=== PATIENT | female | born 2000 | race Caucasian/White ===

== ENCOUNTER 2024-08-22 11:03 | Emergency (ER) | payer BC, SELFPAY ==
[2024-08-22 11:05] VITALS: BP 118/72
--- NOTE | 2024-08-22 12:07 | ED.GENMED ---
History of Present Illness
General
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
Source: patient
Exam Limitations: none
Time Seen by Provider: 08/22/24 11:23
Nursing documentation reviewed up to this point in time: agreed with
History of Present Illness
History of Present Illness:
Patient is a 24-year-old female with past medical history ovarian cyst, breast augmentation SVT presents to the ER for evaluation of right lower quadrant pain. She reports last week she noticed some intermittent right lower quadrant pain and pain
in the right back. On Monday , 5 days ago she had intense pressure which lasted for 20 minutes. She reports she was bent over nauseous and even dry heaving. This felt similar to her ruptured ovarian cyst. She reports on Monday she had sexual
intercourse and pain started to increase again. She was going out of the country in 2 days and came here to the ER just to make sure that this was just a ruptured cyst.
She denies any fever or chills. She has current IUD in place when her last menstrual period therefore was 1 year ago. She denies any history of STD. She denies any vaginal discharge. She denies any abnormal bleeding. No prior history of
pregnancies.
Review of Systems
Review of Systems
Allergies reviewed?: Yes
All Other Systems: ROS reviewed and negative except as documented in HPI and ROS
Phy Exam
General Physical Exam
General Presentation: no apparent distress
General age: appears stated age
General Skin: warm and dry
General Habitus: normal
General Mental: alert
General Hydration: appears well hydrated
Gastrointestinal Exam
Gastrointestinal Exam: non tender and soft
Neurological Exam
Neurological Exam: alert and oriented x3
Musculoskeletal Exam
Musculoskeletal Exam: full ROM
Skin Exam
Skin Exam: normal color and warm/dry
Psychiatric Exam
Psychiatric Exam: normal mood/affect
Course
Orders/Labs/Results
Orders:
Orders
08/22/24 12:05
Test Result ONCE
US Pelvis W Transvag Combined Urgent
Reason For Exam: rlq pain hx of ovarian cyst
08/22/24 12:06
0.9% Sodium Chloride 1000 ml [Nss] 1,000 ml IV BOLUS
08/22/24 12:08
Complete Blood Count/With Diff Urgent
Comprehensive Metabolic Panel Urgent
HCG, Serum Qualitative Screen Urgent
Urinalysis Reflex To Culture Urgent
Date Specimen was Collected: 08/22/24
Time Specimen was Collected: :25
Abnormal Lab Results
08/22/24
12:08
Monocytes % 9.6 H %
(1.7-9.3)
Eosinophils % 9.3 H %
(0-6)
Chloride 108 H mmol/L
(98-107)
08/22/24 12:08
08/22/24 12:08
Vital Signs
Initial and Last Documented VS:
Initial Vital Signs
Temp Pulse Resp BP Pulse Ox
98.5 F 105 20 118/72 100
08/22/24 11:05 08/22/24 11:05 08/22/24 11:05 08/22/24 11:05 08/22/24 11:05
Last Documented Vital Signs
Temp Pulse Resp BP Pulse Ox
98.5 F 105 20 116/63 100
08/22/24 11:05 08/22/24 11:05 08/22/24 11:05 08/22/24 12:16 08/22/24 12:17
MDM/Problems Addressed
MDM/Problems Addressed:
As documented patient is a 24-year-old female with history of ovarian cyst presents for pain in the right lower quadrant similar to her ovarian cyst in the past. She is going to [facility] in 2 days which is what prompted her to come to the ER and
she is currently visiting from [place]. Ultrasound does confirm a complex right ovarian cyst likely hemorrhagic there appears to be complex fluid in the cul-de-sac and right adnexa suggesting hemorrhagic components. She however is very
well-appearing in no acute distress stable vitals and stable labs including stable hemoglobin. No bleeding. No prior history STD fever chills or . neg hcg. She has an IUD in place. Case reviewed with gynecology on-call Dr. Nance who
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 I did instruct patient to call signal circuit designer today to make an appointment for when she gets back as soon as possible. She is well-appearing stable for
discharge home.
*Radiology
Radiology exam reviewed: radiology read reviewed
*Pulse Oximetry
SaO2: 100
Oxygen Mode of Delivery: Room air
Patient hypoxic: no
*Critical Care Note
Total Time (30-74mins, 75-104mins- exclusive of procedures): Not Applicable
Patient Management
Discussion with other providers: Recreation Program Specialist (CERTIFIED OPTICIAN DR Nance )
ED Attending Note
-
Portions of this chart may have been created with voice recognition software.� Occasional wrong word or��sound alike� substitutions may have occurred due to the inherent limitations of voice recognition software.
Discharge Plan
Departure
Patient Disposition: Home (Routine Discharge)
Date of Disposition: 08/22/24
Time of Disposition: 15:32
Patient with high blood pressure during this ER visit?: No
Condition: Fair
Covid-19: Not Applicable
Discharge Problem:
Hemorrhagic ovarian cyst
Instructions: Ovarian cyst - ED discharge instructions
Referrals:
NONE,* [Family Provider, Internal Medicine]
Activity Restrictions/Additional Instructions:
As discussed no sexual activity until you are seen by your signal circuit designer. Please call to make an appointment with your signal circuit designer as soon as possible.
Return if any worsening of symptoms
You may take ibuprofen or Tylenol as needed.
Interventions
Interventions:
*Risk Screen - Suicide Last Done: 08/22/24 11:05
*General Assessment Last Done: 08/22/24 12:09
*Neglect/Abuse Screening Last Done: 08/22/24 11:05
*ED- Fall Risk Assessment Last Done: 08/22/24 11:26
*ED COVID-19 Vaccine History Last Done: 08/22/24 11:26
ED-Female Genitourinary Assessment Last Done: 08/22/24 11:27
Discharge Date and Time
Print Language: SYRIAC
[2024-08-22 12:09] VITALS: BMI 22.7
[2024-08-22 12:16] VITALS: BP 116/63
[2024-08-22] MEDS: NSS 1000 IV (12:17)
[2024-08-22 12:32] LABS: Hematocrit 39.0 % (37.0-47.0); Hemoglobin 13.2 g/dL (12.0-16.0); Mean Corp Hgb Conc. 33.8 g/dL (33.0-37.0); Mean Corpuscular Volume 89.0 fL (81.0-99.0); Nucleated Red Blood Cells % 0 %; Platelet Count 294 10^3/uL (130-400); Red Cell Dist. Width 12.6 % (11.5-14.5)
[2024-08-22 12:37] LABS: Urine Character Clear (Clear)
[2024-08-22 12:38] LABS: HCG, Serum Qualitative Screen Negative
[2024-08-22 13:11] LABS: ALT (SGPT) 17 U/L (0-35); AST (SGOT) 19 U/L (14-36); Albumin 4.5 g/dl (3.5-5.0); Alkaline Phosphatase 54 U/L (38-126); Blood Urea Nitrogen 10 mg/dl (7-17); Calcium 9.2 mg/dl (8.4-10.2); Carbon Dioxide 25 mmol/L (22-30); Chloride 108 mmol/L (98-107); Estimated Creatinine Clearance 122 ml/min; Glucose 81 mg/dl (70-99); Potassium 4.3 mmol/L (3.5-5.1); Sodium 137 mmol/L (135-145); Total Protein 7.3 g/dl (6.3-8.2); eGFR > 60.00
[2024-08-22 15:35] VITALS: BP 105/64
== END 2024-08-22 15:47 | disposition home or self-care (01) ==
LOC: EMR 11:03
PROVIDERS: Nurse Practitioner; EMERGENCY PHYSICIAN Student in an Organized Health Care Education/Training Program
DX: N83.201 Unspecified ovarian cyst, right side (principal)
CPT/HCPCS: 96360; 99284; 76830; 76856; 80053; 81003; 84703; 85025